=== PATIENT | male | born 1965 | race Caucasian/White ===

== ENCOUNTER 2022-10-26 08:19 | Outpatient (CLI) | payer BC, SELFPAY | END 2022-10-26 08:20 | disposition home or self-care (01) | PROVIDERS: PCP Physician Assistant Medical; Visit Provider Surgery | DX: Z12.11 Encounter for screening for malignant neoplasm of colon (principal); K57.30 Diverticulosis of large intestine without perforation or abscess without bleeding; Z86.010 Personal history of colon polyps | CPT/HCPCS: 45378; J2250; J3010 ==

== ENCOUNTER 2023-05-06 08:12 | Outpatient (CLI) | payer BC, SELFPAY | END 2023-05-06 08:13 | disposition home or self-care (01) | PROVIDERS: PCP Physician Assistant Medical; Referring Provider Physician Assistant Medical; Visit Provider Physician Assistant Medical | DX: E78.5 Hyperlipidemia, unspecified (principal); I10 Essential (primary) hypertension; R73.03 Prediabetes; Z12.5 Encounter for screening for malignant neoplasm of prostate | CPT/HCPCS: 80053; 80061; 82607; 84153 ==

== ENCOUNTER 2023-05-13 14:05 | Outpatient (CLI) | payer BC, SELFPAY | END 2023-05-13 14:06 | disposition home or self-care (01) | LOC: LKVREF 14:07 | PROVIDERS: PCP Physician Assistant Medical; Visit Provider Orthopaedic Surgery | DX: B99.9 Unspecified infectious disease (principal) | CPT/HCPCS: 86140 ==

== ENCOUNTER 2023-06-15 14:35 | Outpatient (CLI) | payer BC, SELFPAY ==
[2023-06-15] MEDS: PERFLUTREN LIPID MICROSPHERES 2 ML VIAL IV (15:57)
[2023-06-15 16:37] VITALS: BP 154/81; PULSE 95
--- NOTE | 2023-06-15 17:10 | W.PM.STED ---
Stress Test Note Date Date Seen: 06/15/23 Date of test: 06/15/23 Providers Primary care provider: Marie De Los Santos Stress test physician: Nicholas Figueroa Stress Test Note Stress test ordered: Stress Echo Stress test medicine: Definity Results discussion: Patient is a very nice 57-year-old gentleman who presents for the above test after discussion the risks benefits and side effects he would like to proceed pretest EKG shows normal sinus rhythm with a ventricular rate of 82 and a blood pressure 129 and 82. Cardiac stress test medical history form is reviewed also. Following standard Henry protocol he is exercised for a total time of 6 minutes 42 seconds, test is terminated because of fulfillment of protocol, and fatigue. Levaquin is 8.1 Mets, with a maximum heart rate of 156. During this test, no chest pain just fatigue, there is no other anginal equivalent symptoms. No ST wave changes suggestive of ischemia is noted there is no dysrhythmias noted. The patient recovered normally Impression: Negative electrographic portion of stress echo, conditioning was felt to be moderate Follow up suggested: Patient will be discharged home Cardiology will read over the echo images, clinical correlation with these will be needed, patient left this testing facility in excellent condition.
== END 2023-06-15 14:36 | disposition home or self-care (01) ==
LOC: STRESS 14:36
PROVIDERS: PCP Physician Assistant Medical; Visit Provider Family Medicine
DX: R07.9 Chest pain, unspecified (principal)
CPT/HCPCS: 93016; 93325; 93351; Q9957

== ENCOUNTER 2023-07-28 08:45 | Outpatient (RCR) | payer BC, SELFPAY | END 2023-08-05 14:31 | disposition home or self-care (01) | PROVIDERS: PCP Physician Assistant Medical; Visit Provider Orthopaedic Surgery | DX: M25.561 Pain in right knee (principal); M25.562 Pain in left knee; M19.90 Unspecified osteoarthritis, unspecified site; Z51.89 Encounter for other specified aftercare | CPT/HCPCS: 97110; 97140; 97161 ==

== ENCOUNTER 2023-08-16 08:16 | Outpatient (CLI) | payer BC, SELFPAY | END 2023-08-16 08:17 | disposition home or self-care (01) | LOC: NFLDREF 08-18 12:59 | PROVIDERS: PCP Physician Assistant Medical; Referring Provider Physician Assistant Medical; Visit Provider Physician Assistant Medical | DX: I10 Essential (primary) hypertension (principal); R73.03 Prediabetes; E78.5 Hyperlipidemia, unspecified | CPT/HCPCS: 80053; 80061 ==

== ENCOUNTER 2024-09-04 09:09 | Outpatient (CLI) | payer BC, SELFPAY | END 2024-09-04 09:10 | disposition home or self-care (01) | LOC: NFLDREF 15:18 | PROVIDERS: PCP Physician Assistant Medical; Referring Provider Physician Assistant Medical; Visit Provider Physician Assistant Medical | DX: Z00.00 Encounter for general adult medical examination without abnormal findings (principal); R73.03 Prediabetes; E66.9 Obesity, unspecified; E78.5 Hyperlipidemia, unspecified; I10 Essential (primary) hypertension; Z12.5 Encounter for screening for malignant neoplasm of prostate | CPT/HCPCS: 80053; 80061; 82043; 82570; 82607; 84439; 84443; G0103 ==

== ENCOUNTER 2024-12-18 08:38 | Outpatient (CLI) | payer BC, SELFPAY | END 2024-12-18 08:39 | disposition home or self-care (01) | LOC: NFLDREF 12-25 01:40 | PROVIDERS: PCP Physician Assistant Medical; Referring Provider Physician Assistant Medical; Visit Provider Physician Assistant Medical | DX: E78.5 Hyperlipidemia, unspecified (principal); I10 Essential (primary) hypertension; R73.03 Prediabetes; D64.9 Anemia, unspecified; R82.90 Unspecified abnormal findings in urine; Z12.5 Encounter for screening for malignant neoplasm of prostate | CPT/HCPCS: 80053; 80061; 82607; 83540; 83550; 87086; G0103 ==

== ENCOUNTER 2024-12-21 09:48 | Outpatient (CLI) | payer BC, SELFPAY | END 2024-12-21 09:49 | disposition home or self-care (01) | PROVIDERS: PCP Physician Assistant Medical; Visit Provider Physician Assistant Medical | DX: D64.9 Anemia, unspecified (principal); M25.561 Pain in right knee; M25.562 Pain in left knee; R06.00 Dyspnea, unspecified; E66.01 Morbid (severe) obesity due to excess calories | CPT/HCPCS: 82746; 83880; 84550 ==

== ENCOUNTER 2024-12-25 08:55 | Outpatient (RCR) | payer BC, SELFPAY | END 2025-04-24 23:59 | disposition home or self-care (01) | PROVIDERS: PCP Physician Assistant Medical; Visit Provider Physician Assistant Medical | DX: M25.561 Pain in right knee (principal); M25.562 Pain in left knee; Z51.89 Encounter for other specified aftercare | CPT/HCPCS: 97110; 97161 ==

== ENCOUNTER 2025-06-28 11:33 | Outpatient (CLI) | payer BC, SELFPAY | END 2025-06-28 11:34 | disposition home or self-care (01) | PROVIDERS: PCP Physician Assistant Medical; Visit Provider Physician Assistant Medical | DX: I26.99 Other pulmonary embolism without acute cor pulmonale (principal) | CPT/HCPCS: 81240; 81241; 83090; 85300; 85302; 85303; 85306; 85384; 85520; 85525; 85598; 85610; 85613; 85670; 85730; 86146; 86147; 86200 ==

== ENCOUNTER 2025-07-03 08:30 | Outpatient (RCR) | payer BC, SELFPAY | END 2025-10-31 23:59 | disposition home or self-care (01) | PROVIDERS: PCP Physician Assistant Medical; Visit Provider Physician Assistant | DX: R42 Dizziness and giddiness (principal); Z51.89 Encounter for other specified aftercare | CPT/HCPCS: 93970; 97112; 97161 ==

== ENCOUNTER 2025-07-03 12:32 | Outpatient (CLI) | payer BC, SELFPAY ==
--- NOTE | 2025-07-03 13:00 | CRLHL7_ITS ---
For Patients: As a result of the Century Cures Act, medical imaging exams and procedure reports are released immediately into your electronic medical record. You may view this report before your referring provider. If you have questions, please contact your health care provider. INDICATION: Pulmonary embolism COMPARISON: none TECHNIQUE: A compression venous ultrasound exam was performed of both lower extremities using guzman scale imaging, color Doppler and spectral Doppler analysis. FINDINGS: Sonographic imaging of the lower extremities demonstrates normal compressibility and color Doppler venous blood flow within the common femoral, deep femoral, and proximal greater saphenous veins. Within the thighs the femoral veins are patent and compressible. At a lower level the popliteal and posterior tibial veins also show normal compressibility and color Doppler venous blood flow. There is sluggish flow within the paired peroneal veins bilaterally. These veins appear to be compressible. IMPRESSION: Sluggish flow within the paired peroneal veins bilaterally suggesting venous insufficiency versus partial nonocclusive thrombi. Remainder unremarkable. Dictated by Erasmo Dowell MD @ 07/03/2025 2:12:57 PM (Electronically Signed)
== END 2025-07-03 12:33 | disposition home or self-care (01) ==
LOC: US 12:33
PROVIDERS: PCP Physician Assistant Medical; Visit Provider Physician Assistant Medical
DX: I26.99 Other pulmonary embolism without acute cor pulmonale (principal); H81.12 Benign paroxysmal vertigo, left ear; R26.89 Other abnormalities of gait and mobility
CPT/HCPCS: 93970